=== PATIENT | female | born 1950 | race Caucasian/White ===

== ENCOUNTER → 2017-03-22 | Outpatient (CLI) | payer OTHER, MEDICARE | LOC: BMCIMAGING 14:09 | PROVIDERS: ATTEND Family Medicine | DX: S59.902A Unspecified injury of left elbow, initial encounter (principal) ==

== ENCOUNTER 2018-08-31 12:58 | Emergency (ER) | payer MEDICARE, OTHER ==
[2018-08-31] MEDS ORDERED: NS 1,000 ML IV ONE (13:23)
[2018-08-31] MEDS ORDERED: KETOROLAC 30 MG/1 ML SDV IVP ONE (13:23)
--- NOTE | 2018-08-31 13:29 | EDPHY ---
H & P Stated Complaint: R flank pain since @11am Time Seen by Provider: 08/31/18 13:14 HPI/ROS: CHIEF COMPLAINT: Right upper back pain HISTORY OF PRESENT ILLNESS: The patient is a 68-year-old healthy female who states that about 2 hr ago she had sudden onset right back pain. 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 She had just 20 min earlier received a shingles vaccination. She wondered if this was a reaction. She denies shortness of breath. No GI symptoms. No chest pain. No lower abdominal pain or groin pain. No history of kidney stones. No recent fevers or infections. No paresthesias numbness or weakness. No bowel or bladder abnormalities. No trauma. No rash. Severity: Severe and sudden onset Modifying factors: Pain is improved when she leans to the left. Worse if she sits straight up or stands up or lays down. REVIEW OF SYSTEMS: Constitutional: denies: chills, fever, recent illness, recent injury EENTM: denies: blurred vision, double vision, nose congestion Respiratory: denies: cough, shortness of breath Cardiac: denies: chest pain, irregular heart rate, lightheadedness, palpitations Gastrointestinal/Abdominal: denies: abdominal pain, diarrhea, nausea, vomiting, blood streaked stools Genitourinary: denies: dysuria, frequency, hematuria, pain Musculoskeletal see HPI Skin: denies: lesions, rash, jaundice, bruising Neurological: denies: headache, numbness, paresthesia, tingling, dizziness, weakness Hematologic/Lymphatic: denies: blood clots, easy bleeding, easy bruising Immunologic/allergic: denies: HIV/AIDS, transplant 10 systems reviewed and negative except as noted EXAM: GENERAL: Moderate distress, well-nourished. HEAD: Atraumatic, normocephalic. EYES: Pupils equal round and reactive to light, extraocular movements intact, sclera anicteric, conjunctiva are normal. ENT: TMs normal, nares patent, oropharynx clear without exudates. Moist mucous membranes. NECK: Normal range of motion, supple without lymphadenopathy or JVD. LUNGS: Breath sounds clear to auscultation bilaterally and equal. No wheezes rales or rhonchi. HEART: Regular rate and rhythm without murmurs, rubs or gallops. ABDOMEN: Soft, nontender, normoactive bowel sounds. No guarding, no rebound. No masses appreciated. BACK: No CVA tenderness, no spinal tenderness, step-offs or deformities no visible rashes. Pain just above the right CVA area. Just below the scapula. EXTREMITIES: Normal range of motion, no pitting or edema. No clubbing or cyanosis. NEUROLOGICAL: Cranial nerves II through XII grossly intact. Normal speech, normal gait. 5/5 strength, normal movement in all extremities, normal sensation , normal reflexes PSYCH: Normal mood, normal affect. SKIN: Warm, dry, normal turgor, no visible rashes or lesions. Source: Patient Exam Limitations: No limitations - Medical/Surgical History Hx Asthma: No Hx Chronic Respiratory Disease: No Hx Diabetes: No Hx Cardiac Disease: No Hx Renal Disease: No Hx Cirrhosis: No Hx Alcoholism: No Hx HIV/AIDS: No Hx Splenectomy or Spleen Trauma: No Other PMH: ortho surgeries. shingles - Family History Significant Family History: No pertinent family hx - Social History Smoking Status: Never smoked Alcohol Use: None Constitutional: Initial Vital Signs Temperature (C) 36.0 C 08/31/18 13:02 Heart Rate 67 08/31/18 13:02 Respiratory Rate 18 08/31/18 13:02 Blood Pressure 165/74 H 08/31/18 13:02 O2 Sat (%) 97 08/31/18 13:02 O2 Delivery Mode Room Air Allergies/Adverse Reactions: morphine Allergy (Verified 08/31/18 13:09) Penicillins Allergy (Verified 08/31/18 13:09) tetracycline Allergy (Verified 08/31/18 13:11) Home Medications: Medication Instructions Recorded Cephalexin [Keflex] 500 mg PO TID #21 cap 08/31/18 oxyCODONE/APAP 5/325 [Percocet 1 - 2 tab PO Q4H PRN #7 tab 08/31/18 5/325 (*)] Medical Decision Making - Diagnostics EKG Interpretation: An EKG obtained and was read and documented in trace view. Please see trace view for full reading and report. Sinus rhythm, bradycardic, no acute ischemic changes. Imaging: Discussed imaging studies w/ dean Radiologist ED Course/Re-evaluation: 2:45 p.m. We discussed the lab and imaging results which are very reassuring. The patient has nitrates and bacteria in her urine. Will treat for equivocal urinary tract infection and send for cultures. She is still having significant pain that is somewhat unexplained. She had rapid onset of this pain. Will add on a D-dimer to her lab work and treat with Dilaudid. She initially told me that morphine does not work for her but now tells me that she just needs large doses of it. 4:00 p.m. The patient's pain is controlled. D-dimer is negative. She feels reassured. Will treat with Keflex for her urine as well as a small amount of Percocet for her pain. Differential Diagnosis: Partial list of the Differential diagnosis considered include but were not limited to; urinary tract infection, kidney stone and although unlikely based on the history and physical exam, I also considered acute coronary disease, dissection, PE, pneumothorax. - Data Points Laboratory Results: Laboratory Results 08/31/18 13:27 08/31/18 13:27 Microbiology Results: MICROBIOLOGY 08/31/18 13:15 Unspecified Urine Culture - Preliminary Escherichia Coli Medications Given: Discontinued Medications Cephalexin HCl (Keflex) 500 mg PO EDNOW ONE PRN Reason: Protocol Stop: 08/31/18 14:45 Last Admin: 08/31/18 14:56 Dose: 500 mg Hydromorphone HCl (Dilaudid) 1 mg IVP EDNOW ONE Stop: 08/31/18 14:45 Last Admin: 08/31/18 14:56 Dose: 1 mg Sodium Chloride (Ns) 1,000 mls @ 0 mls/hr IV EDNOW ONE; Wide Open PRN Reason: Protocol Stop: 08/31/18 13:24 Last Admin: 08/31/18 13:34 Dose: 1,000 mls Ketorolac Tromethamine (Toradol) 30 mg IVP EDNOW ONE Stop: 08/31/18 13:24 Last Admin: 08/31/18 13:35 Dose: 30 mg Point of Care Test Results: Chemistry 08/31/18 13:34 POC Troponin I 0.00 ng/mL ng/mL (0.00-0.08) Departure - Departure Disposition: Home, Routine, Self-Care Clinical Impression: Flank pain Urinary tract infection Qualifiers: Urinary tract infection type: acute cystitis Hematuria presence: without hematuria Qualified Code(s): N30.00 - Acute cystitis without hematuria Condition: Fair Instructions: Urinary Tract Infection in Women (DC), Flank Pain (ED) Referrals: Bear Cid MD [Primary Care Provider] - 2-3 days without fail Prescriptions: Cephalexin [Keflex] 500 mg PO TID #21 cap oxyCODONE/APAP 5/325 [Percocet 5/325 (*)] 1 - 2 tab PO Q4H PRN #7 tab PRN Reason: Pain, Severe
[2018-08-31 13:44] LABS: PLATELET COUNT 351 10^3/uL (150-400)
--- NOTE | 2018-08-31 14:02 | CPEKG ---
Test Reason : OPEN Blood Pressure : / mmHG Vent. Rate : 050 BPM Atrial Rate : 050 BPM P-R Int : 132 ms QRS Dur : 094 ms QT Int : 441 ms P-R-T Axes : 053 041 061 degrees QTc Int : 403 ms Sinus rhythm Confirmed by Clint Yadav ([id number]) on 08/31/2018 2:02:36 PM Referred By: Clint Yadav Confirmed By:Clint Yadav
[2018-08-31] MEDS ORDERED: CEPHALEXIN 500 MG CAP PO ONE (14:44)
[2018-08-31] MEDS ORDERED: HYDROmorphONE/DILAUDID 2 MG/ML INJ IVP ONE (14:44)
[2018-08-31 16:17] VITALS: BP 124/75
== END 2018-08-31 16:17 | disposition home or self-care (01) ==
DX: N30.00 Acute cystitis without hematuria (principal); E86.9 Volume depletion, unspecified
CPT/HCPCS: 74176; 93005; 96361; 96374; 96375; 99285; J1170; J1885; 84484-ER